=== PATIENT | female | born 1990 | race Two or more races ===

== ENCOUNTER 2020-03-22 12:52 | Emergency (ER) | payer OTHER ==
[~2020-03-22] VITALS: Ht 160 cm; Wt 83.7 kg
[2020-03-22 13:00] VITALS: BP 116/77
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
[2020-03-22] MEDS ORDERED: KETOROLAC 60 MG/2 ML VIAL. IM ONE (14:30)
[2020-03-22] MEDS ORDERED: HYDROcodone/APAP 5/325MG 1 TAB TABLET PO ONE (14:30)
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
[2020-03-22] MEDS ORDERED: IBUP600T16 PO (15:03)
== END 2020-03-22 15:08 | disposition home or self-care (01) ==
LOC: EEVIPCON 12:52 → ER 15:06
DX: S16.1XXA Strain of muscle, fascia and tendon at neck level, initial encounter (principal); R51.9 Headache, unspecified; V98.8XXA Other specified transport accidents, initial encounter; Y93.89 Activity, other specified; Y92.413 State road as the place of occurrence of the external cause; Y99.8 Other external cause status
CPT/HCPCS: 70450; 72125; 81025; 96372; 99285; J1885